=== PATIENT | male | born 1960 | race Caucasian/White ===

== ENCOUNTER 2019-08-23 11:18 | Emergency (ER) | payer SELFPAY ==
[~2019-08-23] VITALS: Ht 172.7 cm; Wt 68.0 kg
[2019-08-23 12:22] VITALS: BP 157/66
== END 2019-08-23 13:59 | disposition left against medical advice (07) ==
LOC: ER 11:18
DX: M54.9 Dorsalgia, unspecified (principal); Z53.21 Procedure and treatment not carried out due to patient leaving prior to being seen by health care provider

== ENCOUNTER 2023-02-28 16:02 | Emergency (ER) | payer MEDICAID ==
[~2023-02-28] VITALS: Ht 172.7 cm; Wt 68.1 kg
[~2023-02-28 16:02] MED LIST: HYDR-4902 PO; LEVO500T31 PO; METO-158 PO; RIFA300C3 PO
[2023-02-28 16:52] VITALS: BP 153/76
== END 2023-02-28 20:15 | disposition left against medical advice (07) ==
LOC: ER 16:02
DX: L03.115 Cellulitis of right lower limb (principal); E11.621 Type 2 diabetes mellitus with foot ulcer; L97.419 Non-pressure chronic ulcer of right heel and midfoot with unspecified severity; E11.69 Type 2 diabetes mellitus with other specified complication; M86.8X9 Other osteomyelitis, unspecified sites; F15.10 Other stimulant abuse, uncomplicated; Z59.00 Homelessness unspecified